=== PATIENT | female | born 1930 ===

== ENCOUNTER 2016-10-22 11:47 | Inpatient (IN) | payer MEDICAID ==
--- NOTE | 2016-10-22 13:21 | ED PDOC ---
Syncope/Near Syncope/Dizzyness Time Seen by Provider: 10/22/16 12:00 Chief Complaint (Nursing): Syncope Chief Complaint (Provider): Syncope History Per: Patient History/Exam Limitations: no limitations Current Symptoms Are (Timing): Still Present Number Of Syncopal Episodes: 1 Seizure Or Post-ictal Symptoms: None Fall Associated With With Symptoms: No Severity: Mild Additional Complaint(s): Patient is a 85 year old female brought to ED by EMS for a witness pre-syncopal episode. Patient reports waking at 0900 today with generalized weakness and shivering but denies any other symptoms. Patient denies chest pain, palpations, SOB or neck pain. Patient does note a recent change in her blood pressure medication. PMD: DR. Rodgers Past Medical History Reviewed: Historical Data, Nursing Documentation, Vital Signs Vital Signs: Last Vital Signs Temp 98.6 F 10/22/16 11:50 Pulse 108 H 10/22/16 13:09 Resp 20 10/22/16 13:09 BP 130/70 10/22/16 13:09 Pulse Ox 99 10/22/16 13:09 - Medical History PMH: Cardia Arrhythmia, HTN, Hypercholesterolemia - Surgical History Surgical History: No Surg Hx - Family History Family History: States: No Known Family Hx - Living Arrangements Living Arrangements: With Family - Home Medications Home Medications: Ambulatory Orders Medication Instructions Recorded Alendronate [Fosamax] 70 mg PO QWK 10/22/16 Atorvastatin [Lipitor] 10 mg PO DAILY 10/22/16 Diclofenac Sodium [Voltaren] 1 appl TOP QID PRN 10/22/16 Levothyroxine [Synthroid] 88 mcg PO DAILY 10/22/16 Losartan/Hydrochlorothiazide 1 tab PO DAILY 10/22/16 [Hyzaar 100-25 Tablet] Meloxicam [Mobic] 15 mg PO DAILY 10/22/16 amLODIPine [Norvasc] 10 mg PO DAILY 10/22/16 - Allergies Allergies/Adverse Reactions: Allergies Allergy/AdvReac Type Severity Reaction Status Date / Time Penicillins Allergy RASH Verified 10/22/16 12:27 Review of Systems ROS Statement: Except As Marked, All Systems Reviewed And Found Negative Constitutional: Positive for: Chills. Negative for: Fever Gastrointestinal: Negative for: Nausea, Vomiting Musculoskeletal: Negative for: Neck Pain Neurological: Positive for: Headache, Other ((+) syncope). Negative for: Weakness, Numbness, Altered Mental Status Physical Exam - Reviewed Nursing Documentation Reviewed: Yes Vital Signs Reviewed: Yes - Physical Exam Appears: Positive for: Non-toxic, Uncomfortable Head Exam: Positive for: ATRAUMATIC, NORMAL INSPECTION Skin: Positive for: Normal Color, Warm. Negative for: Diaphoresis, Pallor Eye Exam: Positive for: Normal appearance, EOMI, PERRL Neck: Positive for: Normal, Painless ROM Cardiovascular/Chest: Positive for: Regular Rate, Rhythm. Negative for: Murmur Respiratory: Positive for: Normal Breath Sounds. Negative for: Respiratory Distress Back: Positive for: Normal Inspection Extremity: Positive for: Normal ROM. Negative for: Pedal Edema, Calf Tenderness Neurologic/Psych: Positive for: Alert, Oriented - Laboratory Results Result Diagrams: 10/23/16 10:10 10/23/16 05:45 - ECG O2 Sat by Pulse Oximetry: 99 (RA) Pulse Ox Interpretation: Normal - CT Scan/US CT head without contrast Other Rad Studies (CT/US): Read By Radiologist, Radiology Report Reviewed Medical Decision Making Medical Decision Making: Time: 1240 Initial impression: Syncope Initial plan: -- CT-head -- CMP -- Troponin -- CBC Time: 14:[address] without contrast results reviewed FINDINGS: HEMORRHAGE: No intracranial hemorrhage. BRAIN: There is no mass, mass effect or abnormal extra-axial fluid collection. There are mild chronic microangiopathic changes. VENTRICLES: There is mild age-related global parenchymal volume loss and proportionate enlargement of the ventricles and cortical sulci. CALVARIUM: The skull base and calvarium are normal. PARANASAL SINUSES: Predominantly clear. MASTOID AIR CELLS: Predominantly clear. OTHER FINDINGS: None. IMPRESSION: No acute intracranial abnormality. Mild chronic microangiopathic changes and mild age-related global parenchymal volume loss. Time: 1645 Case discussed with , covering Dr. Rodgers, will accept patient to telemetry for further evaluation. Patient has no prior EKG to compare changes too. Dx: EKG changes flipped T waves v4-v6 and Pre-Syncope therefore will admit for cardiac monitoring cxr no infiltrate Discussed plans with daughter at bedside and is aware that patient will be admitted pt is agreeable Scribe Attestation: Documented by Ayana Javed acting as a scribe for Joshua Almaraz MD MD Scribe Attestation: All medical record entries made by the Stevenibharriett were at my direction and personally dictated by me. I have reviewed the chart and agree that the record accurately reflects my personal performance of the history, physical exam, medical decision making, and the department course for this patient. I have also personally directed, reviewed, and agree with the discharge instructions and disposition. Disposition - Clinical Impression Clinical Impression: Pre-syncope, Acute electrocardiography changes - Patient ED Disposition Is Patient to be Admitted: Yes Counseled Patient/Family Regarding: Studies Performed, Diagnosis - Disposition Disposition Time: 14:00 Condition: STABLE
[2016-10-22 13:47] LABS: CHLORIDE 104 mmol/L (98-107)
[2016-10-22 13:48] LABS: SODIUM 141 mmol/l (132-148)
[2016-10-22 13:50] LABS: ALKALINE PHOSPHATASE 118 U/L (38-126); AST/SGOT 41 U/L (14-36); BILIRUBIN,TOTAL 1.1 mg/dl (0.2-1.3); CARBON DIOXIDE 20 mmol/L (22-30); GFR AFRICAN-AMERICAN > 60
[2016-10-22 13:51] LABS: ALT/SGPT 24 U/L (9-52); BLOOD UREA NITROGEN 19 mg/dl (7-17); CALCIUM 8.1 mg/dL (8.4-10.2); GLUCOSE,RANDOM 88 mg/dL (65-105)
[2016-10-22 13:57] LABS: ALB/GLOB RATIO 1.2 (1.0-2.1)
[2016-10-22 13:58] LABS: BASO % 0.1 % (0.0-2.0); EOS % 0.4 % (0.0-4.0); HEMATOCRIT 48.8 % (34.0-47.0); LYMPH # 0.5 K/uL (1.0-4.3); LYMPH % 11.3 % (20.0-40.0); MEAN CELL VOLUME 93.4 fl (81.0-99.0); MEAN CORPUSCULAR HGB CONC 33.2 g/dL (33.0-37.0); MEAN PLATELET VOLUME 8.2 fl (7.2-11.7); MONO % 0.4 % (0.0-10.0); NEUT # 3.5 K/uL (1.8-7.0); NEUT % 87.8 % (50.0-75.0); NRBC % 1.4 % (0.0-0.0); POTASSIUM 3.4 MMOL/L (3.6-5.0); RED CELL DISTRIBUTION WIDTH 14.7 % (11.5-14.5)
[2016-10-22] MEDS ORDERED: Potassium Chloride 20 mEq ER Tab PO ONE ×2 (13:58→14:03)
[2016-10-22] MEDS ORDERED: Sodium Chloride 0.9% 1,000 ML IV STA (14:45)
--- NOTE | 2016-10-22 14:45 | CT ---
PROCEDURE: CT HEAD WITHOUT CONTRAST. HISTORY: Headache COMPARISON: None available. TECHNIQUE: Axial computed tomography images were obtained through the head/brain without intravenous contrast. Radiation dose: Total exam DLP = 869.12 MGy-cm. This CT exam was performed using one or more of the following dose reduction techniques: Automated exposure control, adjustment of the mA and/or kV according to patient size, and/or use of iterative reconstruction technique. FINDINGS: HEMORRHAGE: No intracranial hemorrhage. BRAIN: There is no mass, mass effect or abnormal extra-axial fluid collection. There are mild chronic microangiopathic changes. VENTRICLES: There is mild age-related global parenchymal volume loss and proportionate enlargement of the ventricles and cortical sulci. CALVARIUM: The skull base and calvarium are normal. PARANASAL SINUSES: Predominantly clear. MASTOID AIR CELLS: Predominantly clear. OTHER FINDINGS: None. IMPRESSION: No acute intracranial abnormality. Mild chronic microangiopathic changes and mild age-related global parenchymal volume loss.
--- NOTE | 2016-10-22 17:14 | ED PDOC ---
- Laboratory Results Result Diagrams: 10/27/16 06:10 10/27/16 06:10 - ECG O2 Sat by Pulse Oximetry: 99 (RA) Medical Decision Making Medical Decision Makin:00 Patient will be signed out to me by Joshua Almaraz MD pending XRay, reevaluation , and final disposition. Scribe Attestation: Documented by Kizzy Owen acting as a scribe for Marilyn Negron MD, MD Scribe Attestation: All medical record entries made by the Scribe were at my direction and personally dictated by me. I have reviewed the chart and agree that the record accurately reflects my personal performance of the history, physical exam, medical decision making, and the department course for this patient. I have also personally directed, reviewed, and agree with the discharge instructions and disposition. Disposition Doctor Will See Patient In The: Hospital - Clinical Impression Clinical Impression: Pre-syncope, Acute electrocardiogram changes - POA Present On Arrival: None - Disposition Disposition: Admitted as In-Patient Disposition Time: 20:00 Condition: STABLE
--- NOTE | 2016-10-22 19:11 | CP.PCM.CON ---
History of Present Illness - History of Present Illness History of Present Illness: I was asked to see patietn by Dr. Noyola. Patient is a 85 year old female with a history of HTN, hyperchoelsterolemia who presents with presyncopal episode. The patient reports a sensation of dizziness and lightheadedness. The patient denies chest pain. Review of Systems - Constitutional Constitutional: absent: As Per HPI, Anorexia, Chills, Daytime Sleepiness, Excessive Sweating, Fatigue, Fever, Frequent Falls, Headache, Increased Appetite , Lethargy, Malaise, Night Sweats, Snoring, Sleep Apnea, Weight Gain, Weight Loss, Weakness, Other - EENT Eyes: absent: As Per HPI, Blind Spots, Blurred Vision, Change in Vision, Decreased Night Vision, Diplopia, Discharge, Dry Eye, Exophthalmos, Floaters, Irritation, Itchy Eyes, Loss of Peripheral Vision, Pain, Photophobia, Requires Corrective Lenses, Sees Flashes, Spots in Vision, Tunnel Vision, Other Visual Disturbances, Loss of Vision, Other Ears: absent: As Per HPI, Decreased Hearing, Ear Discharge, Ear Pain, Tinnitus, Abnormal Hearing, Disequilibrium, Dizziness, Other Nose/Mouth/Throat: absent: As Per HPI, Epistaxis, Nasal Congestion, Nasal Discharge, Nasal Obstruction, Nasal Trauma, Nose Pain, Post Nasal Drip, Sinus Pain, Sinus Pressure, Bleeding Gums, Change in Voice, Dental Pain, Dry Mouth, Dysphagia, Halitosis, Hoarsness, Lip Swelling, Mouth Lesions, Mouth Pain, Odynophagia, Sore Throat, Throat Swelling, Tongue Swelling, Facial Pain, Neck Pain, Neck Mass, Other - Cardiovascular Cardiovascular: Syncope - Respiratory Respiratory: absent: As Per HPI, Cough, Dyspnea, Hemoptysis, Dyspnea on Exertion , Wheezing, Snoring, Stridor, Pain on Inspiration, Chest Congestion, Excessive Mucous Production, Change in Mucous Color, Pain with Coughing, Other - Gastrointestinal Gastrointestinal: absent: As Per HPI, Abdominal Pain, Belching, Bloating, Change in Bowel Habits, Change in Stool Character, Coffee Ground Emesis, Constipation, Cramping, Diarrhea, Dyspepsia, Dysphagia, Early Satiety, Excessive Flatus, Fecal Incontinence, Heartburn, Hematemesis, Hematochezia, Loose Stools, Melena, Nausea, Odynophagia, Temesmus, Vomiting, Other - Musculoskeletal Musculoskeletal: absent: As Per HPI, Abnormal Gait, Arthralgias, Atrophy, Back Pain, Deformity, Joint Swelling, Limited Range of Motion, Loss of Height, Muscle Cramps, Muscle Weakness, Myalgias, Neck Pain, Numbness, Radiating Pain into Limb, Stiffness, Tingling, Other - Integumentary Integumentary: absent: As Per HPI, Acne, Alopecia, Bleeding Lesions, Change in Hair, Change in Nails, Change in Pigmentation, Changing Lesions, Dry Skin, Erythema, Furuncle, Hirsutism, Lesions, New Lesions, Non-Healing Lesions, Photosensitivity, Pruritus, Rash, Skin Pain, Skin Ulcer, Sores, Striae, Swelling , Unusual Bruising, Wounds, Jaundice, Other - Neurological Neurological: absent: As Per HPI, Abnormal Gait, Abnormal Hearing, Abnormal Movements, Abnormal Speech, Behavioral Changes, Burning Sensations, Confusion, Convulsions, Disequilibrium, Dizziness, Numbness, Focal Weakness, Frequent Falls , Headaches, Lack of Coordination, Loss of Vision, Memory Loss, Paresthesias, Radicular Pain, Restless Legs, Sensory Deficit, Syncope, Tingling, Tremor, Vertigo, Weakness, Other Visual Disturbances, Other - Psychiatric Psychiatric: absent: As Per HPI, Abnormal Sleep Pattern, Anhedonia, Anxiety, Auditory Hallucinations, Behavioral Changes, Change in Appetite, Change in Libido, Confusion, Depression, Difficulty Concentrating, Hallucinations, Homicidal Ideation, Hopelessness, Irritability, Memory Loss, Mood Swings, Panic Attacks, Paranoia, Suicidal Ideation, Visual Hallucinations, Tactile Hallucinations, Other - Endocrine Endocrine: absent: As Per HPI, Change in Body Appearance, Change in Libido, Cold Intolorance, Deepening of Voice, Excessive Sweating, Fatigue, Flushing, Heat Intolorance, Increase in Ring/Shoe/Hat Size, Palpitations, Polydipsia, Polyphagia, Polyuria, Other - Hematologic/Lymphatic Hematologic: absent: As Per HPI, Easy Bleeding, Easy Bruising, Lymphadenopathy, Other Past Patient History - Past Social History Smoking Status: Never Smoked - CARDIAC Hx Cardia Arrhythmia: Yes Hx Hypercholesterolemia: Yes Hx Hypertension: Yes - PSYCHIATRIC Hx Substance Use: No - SURGICAL HISTORY Hx Thyroidectomy: Yes - ANESTHESIA Hx Anesthesia: Yes Hx Anesthesia Reactions: No Meds Allergies/Adverse Reactions: Allergies Allergy/AdvReac Type Severity Reaction Status Date / Time Penicillins Allergy RASH Verified 10/22/16 12:27 - Medications Medications: Current Medications Sodium Chloride (Sodium Chloride 0.9%) 1,000 mls @ 150 mls/hr IV .[id number] STA Stop: 10/22/16 21:24 Last Admin: 10/22/16 17:01 Dose: 150 mls/hr Physical Exam - Constitutional Appears: Non-toxic - Head Exam Head Exam: NORMAL INSPECTION - Eye Exam Eye Exam: Normal appearance - ENT Exam ENT Exam: Mucous Membranes Moist - Neck Exam Neck exam: Positive for: Full Rom - Respiratory Exam Respiratory Exam: Decreased Breath Sounds - Cardiovascular Exam Cardiovascular Exam: REGULAR RHYTHM - GI/Abdominal Exam GI & Abdominal Exam: Normal Bowel Sounds - Rectal Exam Rectal Exam: Deferred - Extremities Exam Extremities exam: Negative for: pedal edema - Back Exam Back exam: NORMAL INSPECTION - Neurological Exam Neurological exam: Alert, Oriented x3 - Psychiatric Exam Psychiatric exam: Normal Affect - Skin Skin Exam: Normal Color Results - Vital Signs Recent Vital Signs: Last Vital Signs Temp 98.6 F 10/22/16 18:39 Pulse 102 H 10/22/16 16:27 Resp 20 10/22/16 18:39 BP 110/63 10/22/16 18:39 Pulse Ox 98 10/22/16 18:39 - Labs Result Diagrams: 10/23/16 10:10 10/23/16 05:45 - EKG Data EKG Interpreted by: Myself EKG shows normal: Sinus rhythm Assessment & Plan (1) Syncope Assessment and Plan: unclear etiology. recommend telemetry monitoring. will check echocardiogram, serial enzymes. Status: Acute (2) HTN (hypertension) Assessment and Plan: blood pressure control Status: Acute
[2016-10-23] MEDS ORDERED: ALENDRONATE 70 MG TAB PO SCH (00:45)
--- NOTE | 2016-10-23 00:46 | CARD ---
APPROVED REPORT EKG Measurement Heart [id number] <Conclusion> Sinus tachycardia Possible Left atrial enlargement Possible Inferior infarct, age undetermined Abnormal ECG
[2016-10-23] MEDS: Sodium Chloride 0.45% 1,000 ML IV SCH ×3 (00:58→21:41)
[2016-10-23 06:43] LABS: BASO # 0.1 K/uL (0.0-0.2); BASO % 0.3 % (0.0-2.0); EOS % 0.1 % (0.0-4.0); HEMATOCRIT 38.7 % (34.0-47.0); LYMPH # 0.6 K/uL (1.0-4.3); LYMPH % 2.4 % (20.0-40.0); MEAN CELL VOLUME 92.7 fl (81.0-99.0); MEAN CORPUSCULAR HEMOGLOBIN 30.9 pg (27.0-31.0); MEAN CORPUSCULAR HGB CONC 33.4 g/dL (33.0-37.0); MONO # 0.8 K/uL (0.0-0.8); MONO % 3.6 % (0.0-10.0); NEUT # 21.5 K/uL (1.8-7.0); NEUT % 93.6 % (50.0-75.0); NRBC % 0.1 % (0.0-0.0); PLATELET COUNT 191 K/uL (130-400); RED CELL DISTRIBUTION WIDTH 14.6 % (11.5-14.5)
[2016-10-23] MEDS: Levothyroxine 88 MCG TAB PO SCH (06:43)
[2016-10-23 07:29] LABS: CALCIUM 7.3 mg/dL (8.4-10.2); POTASSIUM 4.5 MMOL/L (3.6-5.0)
[2016-10-23 08:04] LABS: THYROID STIMULATING HORMONE 1.47 mIU/ML (0.46-4.68)
[2016-10-23] MEDS: Enoxaparin 40 mg Syringe SC SCH (08:33)
[2016-10-23 09:34] LABS: METAMYELOCYTE 1 % (0-0); MYELOCYTE 2 % (0-0); NEUTROPHIL 70 % (42-75); TOTAL CELLS COUNTED 100
--- NOTE | 2016-10-23 10:07 | RAD ---
HISTORY: gen weakness COMPARISON: No prior. TECHNIQUE: Chest PA and lateral FINDINGS: LUNGS: No active pulmonary disease. PLEURA: No significant pleural effusion identified. No pneumothorax apparent. CARDIOVASCULAR: Normal. OSSEOUS STRUCTURES: No significant abnormalities. VISUALIZED UPPER ABDOMEN: Normal. OTHER FINDINGS: None. IMPRESSION: No active disease.
[2016-10-23 10:14] LABS: LARGE PLATELETS PRESENT; PLATELET CLUMPS PRESENT
[2016-10-23 10:25] LABS: HEMATOCRIT 38.4 % (34.0-47.0); MEAN CELL VOLUME 92.1 fl (81.0-99.0); MEAN CORPUSCULAR HEMOGLOBIN 30.7 pg (27.0-31.0); MEAN CORPUSCULAR HGB CONC 33.3 g/dL (33.0-37.0); RED CELL DISTRIBUTION WIDTH 14.4 % (11.5-14.5); WHITE BLOOD COUNT 22.1 K/uL (4.8-10.8)
--- NOTE | 2016-10-23 12:40 | CARD ---
APPROVED REPORT EXAM: Two-dimensional and M-mode echocardiogram with Doppler and color Doppler. Other Information Quality : FairRhythm : NSR Technically limited study due to Poor Echo Window INDICATION Syncope Mitral Valve E/A ratio0.0 TDI E/Lateral E'0.0E/Medial E'0.0 LEFT VENTRICLE The left ventricle is normal size. There is normal left ventricular wall thickness. The left ventricular function is normal. The left ventricular ejection fraction is - 70%. There is normal LV segmental wall motion. Transmitral Doppler flow pattern is Grade I-abnormal relaxation pattern. No left ventricle thrombus noted on this study. There is no ventricular septal defect visualized. There is no left ventricular aneurysm. There is no mass noted in the left ventricle. RIGHT VENTRICLE The right ventricle is normal size. There is normal right ventricular wall thickness. The right ventricular systolic function is normal. ATRIA The left atrium size is normal. The right atrium size is normal. The interatrial septum is intact with no evidence for an atrial septal defect. AORTIC VALVE Not seen well There is trace aortic regurgitation. There is no aortic valvular stenosis. MITRAL VALVE The mitral valve is normal in structure and function. There is no evidence of mitral valve prolapse. There is no mitral valve stenosis. There is no mitral valve regurgitation noted. TRICUSPID VALVE not seen well There is no tricuspid valve regurgitation noted. There is no tricuspid valve stenosis. PULMONIC VALVE The pulmonic valve is not well visualized. There is no pulmonic valvular regurgitation. GREAT VESSELS The aortic root is normal in size. The IVC was not visualized. PERICARDIAL EFFUSION small anterior echo free space There is no pleural effusion. <Conclusion> The study is of suboptimal quality. The left ventricle is normal in size and wall thickness. The left ventricular function is normal. The left ventricular ejection fraction is - 70%. The left atrium, right ventricle and right atrium are normal in size. The mitral valve is normal. The aortic and tricuspid valves are not seen well but do not appear stenotic. There is trace aortic regurgitation.
[2016-10-23] MEDS: Aztreonam 1 GM in Sodium Chloride 0.9% 100 ML IVPB SCH ×2 (13:50→21:39)
--- NOTE | 2016-10-23 17:47 | CP.PCM.CON ---
History of Present Illness - History of Present Illness History of Present Illness: discussed on rounds IV antibiotics ordered admitted for syncope developed fever sepsis to be ruled out Review of Systems - Constitutional Constitutional: As Per HPI - EENT Eyes: absent: As Per HPI, Blind Spots, Blurred Vision, Change in Vision, Decreased Night Vision, Diplopia, Discharge, Dry Eye, Exophthalmos, Floaters, Irritation, Itchy Eyes, Loss of Peripheral Vision, Pain, Photophobia, Requires Corrective Lenses, Sees Flashes, Spots in Vision, Tunnel Vision, Other Visual Disturbances, Loss of Vision, Other Ears: absent: As Per HPI, Decreased Hearing, Ear Discharge, Ear Pain, Tinnitus, Abnormal Hearing, Disequilibrium, Dizziness, Other Nose/Mouth/Throat: absent: As Per HPI, Epistaxis, Nasal Congestion, Nasal Discharge, Nasal Obstruction, Nasal Trauma, Nose Pain, Post Nasal Drip, Sinus Pain, Sinus Pressure, Bleeding Gums, Change in Voice, Dental Pain, Dry Mouth, Dysphagia, Halitosis, Hoarsness, Lip Swelling, Mouth Lesions, Mouth Pain, Odynophagia, Sore Throat, Throat Swelling, Tongue Swelling, Facial Pain, Neck Pain, Neck Mass, Other - Breasts Breasts: absent: As Per HPI, Change in Shape, Mass, Pain, Nipple Discharge, Nipple Inversion, Skin Changes, Swelling, Other - Cardiovascular Cardiovascular: As Per HPI - Respiratory Respiratory: As Per HPI - Gastrointestinal Gastrointestinal: As Per HPI - Genitourinary Genitourinary: As Per HPI - Reproductive: Female Reproductive:Female: absent: As Per HPI, Amenorrhea, Amenorrhea/ Control, Currently Menstual, Cycle <21 Days, Cycle >35 Days, Cycle Variable, Menses 1-7 Days, Menses >/= 8 Days, Menses Variable, Cycle > 4 Weeks Between, No Menses for 6 Months, Heavy Menses, Light Menses, Normal Menses, Spotting Between Cycles , S/P Hysterectomy, Menopausal, Post Menopausal, Premenarche, Abnormal Vaginal Bleeding, Dysmenorrhea, Dyspareunia, Genital Lesions, Genital Pruritis, Pelvic Pain, Prolapse Symptoms, Sexual Dysfunction, Vaginal Discharge, Vaginal Dryness , Vaginal Odor, Vaginal Pruritis, Other - Menstruation Menstruation: absent: As Per HPI, Amenorrhea, Amenorrhea/ Control, Currently Menstual, Cycle <21 Days, Cycle >35 Days, Cycle Variable, Menses 1-7 Days, Menses >/= 8 Days, Menses Variable, Cycle > 4 Weeks Between, No Menses for 6 Months, Heavy Menses, Light Menses, Normal Menses, Spotting Between Cycles , S/P Hysterectomy, Menopausal, Post Menopausal, Premenarche, Abnormal Vaginal Bleeding, Dysmenorrhea, Other - Musculoskeletal Musculoskeletal: As Per HPI - Integumentary Integumentary: absent: As Per HPI, Acne, Alopecia, Bleeding Lesions, Change in Hair, Change in Nails, Change in Pigmentation, Changing Lesions, Dry Skin, Erythema, Furuncle, Hirsutism, Lesions, New Lesions, Non-Healing Lesions, Photosensitivity, Pruritus, Rash, Skin Pain, Skin Ulcer, Sores, Striae, Swelling , Unusual Bruising, Wounds, Jaundice, Other - Neurological Neurological: absent: As Per HPI, Abnormal Gait, Abnormal Hearing, Abnormal Movements, Abnormal Speech, Behavioral Changes, Burning Sensations, Confusion, Convulsions, Disequilibrium, Dizziness, Numbness, Focal Weakness, Frequent Falls , Headaches, Lack of Coordination, Loss of Vision, Memory Loss, Paresthesias, Radicular Pain, Restless Legs, Sensory Deficit, Syncope, Tingling, Tremor, Vertigo, Weakness, Other Visual Disturbances, Other - Psychiatric Psychiatric: absent: As Per HPI, Abnormal Sleep Pattern, Anhedonia, Anxiety, Auditory Hallucinations, Behavioral Changes, Change in Appetite, Change in Libido, Confusion, Depression, Difficulty Concentrating, Hallucinations, Homicidal Ideation, Hopelessness, Irritability, Memory Loss, Mood Swings, Panic Attacks, Paranoia, Suicidal Ideation, Visual Hallucinations, Tactile Hallucinations, Other - Endocrine Endocrine: absent: As Per HPI, Change in Body Appearance, Change in Libido, Cold Intolorance, Deepening of Voice, Excessive Sweating, Fatigue, Flushing, Heat Intolorance, Increase in Ring/Shoe/Hat Size, Palpitations, Polydipsia, Polyphagia, Polyuria, Other - Hematologic/Lymphatic Hematologic: absent: As Per HPI, Easy Bleeding, Easy Bruising, Lymphadenopathy, Other Past Patient History - Past Medical History & Family History Past Medical History?: Yes - Past Social History Smoking Status: Never Smoked - CARDIAC Hx Cardiac Disorders: Yes Hx Cardia Arrhythmia: Yes Hx Hypercholesterolemia: Yes Hx Hypertension: Yes - PULMONARY Hx Respiratory Disorders: No - NEUROLOGICAL Hx Neurological Disorder: No - HEENT Hx HEENT Problems: No - RENAL Hx Chronic Kidney Disease: No - ENDOCRINE/METABOLIC Hx Endocrine Disorders: No - HEMATOLOGICAL/ONCOLOGICAL Hx Blood Disorders: No Hx AIDS: No Hx Human Immunodeficiency Virus (HIV): No - INTEGUMENTARY Hx Dermatological Problems: No - MUSCULOSKELETAL/RHEUMATOLOGICAL Hx Musculoskeletal Disorders: No Hx Falls: No - GASTROINTESTINAL Hx Gastrointestinal Disorders: No - GENITOURINARY/GYNECOLOGICAL Hx Genitourinary Disorders: No - PSYCHIATRIC Hx Psychophysiologic Disorder: No Hx Substance Use: No - SURGICAL HISTORY Hx Surgeries: Yes Hx Thyroidectomy: Yes - ANESTHESIA Hx Anesthesia: Yes Hx Anesthesia Reactions: No Meds Allergies/Adverse Reactions: Allergies Allergy/AdvReac Type Severity Reaction Status Date / Time Penicillins Allergy RASH Verified 10/22/16 12:27 - Medications Medications: Current Medications Acetaminophen (Tylenol 325mg Tab) 650 mg PO Q6 PRN PRN Reason: Fever >100.4 F Last Admin: 10/23/16 00:47 Dose: 650 mg Alendronate Sodium (Fosamax) 70 mg PO QWK [facility] Last Admin: 10/23/16 08:31 Dose: 70 mg Amlodipine Besylate (Norvasc) 10 mg PO DAILY [facility] Last Admin: 10/23/16 08:31 Dose: Not Given Aspirin (Aspirin) 325 mg PO DAILY [facility] Last Admin: 10/23/16 08:30 Dose: 325 mg Atorvastatin Calcium (Lipitor) 10 mg PO DAILY [facility] Last Admin: 10/23/16 08:31 Dose: 10 mg Enoxaparin Sodium (Lovenox) 40 mg SC DAILY [facility] PRN Reason: Protocol Last Admin: 10/23/16 08:33 Dose: 40 mg Sodium Chloride (Sodium Chloride 0.45%) 1,000 mls @ 100 mls/hr IV .Q10H [facility] Stop: 10/24/16 00:46 Last Admin: 10/23/16 11:15 Dose: 100 mls/hr Aztreonam 1 gm/ Sodium (Chloride) 100 mls @ 100 mls/hr IVPB Q12 [facility] Last Admin: 10/23/16 13:50 Dose: 100 mls/hr Vancomycin HCl 1 gm/ Sodium (Chloride) 250 mls @ 166.667 mls/hr IVPB 1500 [facility] Last Admin: 10/23/16 13:57 Dose: 166.667 mls/hr Levothyroxine Sodium (Synthroid) 88 mcg PO DAILY@0630 [facility] Last Admin: 10/23/16 06:43 Dose: 88 mcg Physical Exam - Constitutional Appears: Non-toxic, Chronically Ill - Head Exam Head Exam: NORMOCEPHALIC - Eye Exam Eye Exam: PERRL. absent: Scleral icterus - ENT Exam ENT Exam: Mucous Membranes Dry, Normal External Ear Exam, Normal Oropharynx - Neck Exam Neck exam: Negative for: Lymphadenopathy, Thyromegaly - Respiratory Exam Respiratory Exam: Decreased Breath Sounds, Rhonchi - Cardiovascular Exam Cardiovascular Exam: REGULAR RHYTHM, +S1, +S2 - GI/Abdominal Exam GI & Abdominal Exam: Diminished Bowel Sounds, Soft. absent: Tenderness - Rectal Exam Rectal Exam: Deferred - Exam Exam: NORMAL INSPECTION - Extremities Exam Extremities exam: Negative for: calf tenderness, pedal edema - Back Exam Back exam: absent: CVA tenderness (L), CVA tenderness (R), paraspinal tenderness - Neurological Exam Neurological exam: Alert, CN II-XII Intact, Oriented x3, Reflexes Normal - Psychiatric Exam Psychiatric exam: Normal Mood - Skin Skin Exam: Dry, Intact Results - Vital Signs Recent Vital Signs: Last Vital Signs Temp 98.8 F 10/23/16 16:06 Pulse 86 10/23/16 16:06 Resp 20 10/23/16 16:06 BP 98/56 L 10/23/16 16:06 Pulse Ox 95 10/23/16 16:06 - Labs Result Diagrams: 10/24/16 06:40 10/24/16 06:40 Labs: Laboratory Results - last 24 hr 10/23/16 10/23/16 10/23/16 05:45 10:10 16:45 WBC 23.0 H D 22.1 H RBC 4.18 4.17 Hgb 12.9 D 12.8 Hct 38.7 38.4 MCV 92.7 92.1 MCH 30.9 30.7 MCHC 33.4 33.3 RDW 14.6 H 14.4 Plt Count 191 172 MPV 8.0 Neut % (Auto) 93.6 H Lymph % (Auto) 2.4 L Gre[place] % (Auto) 3.6 Eos % (Auto) 0.1 Baso % (Auto) 0.3 Neut # 21.5 H Lymph # 0.6 L Gre[place] # 0.8 Eos # 0.0 Baso # 0.1 Neutrophils % (Manual) 70 Band Neutrophils % 25 H* Lymphocytes % (Manual) 1 L Monocytes % (Manual) 1 Metamyelocytes % 1 H Myelocytes % 2 H Platelet Estimate Normal Plt Clumps, EDTA Present Large Platelets Present Anisocytosis (manual) Slight Sodium 141 Potassium 4.5 Chloride 107 Carbon Dioxide 22 Anion Gap 16 BUN 33 H Creatinine 1.6 H Est GFR ( Amer) 37 Est GFR (Non-Af Amer) 31 Random Glucose 101 Calcium 7.3 L Troponin I 0.0720 0.0410 TSH 3rd Generation 1.47 Assessment & Plan (1) Acute electrocardiogram changes Status: Acute (2) Fever Status: Acute (3) HTN (hypertension) Status: Acute (4) Pre-syncope Status: Acute (5) Syncope Status: Acute - Assessment and Plan (Free Text) Assessment: septic work up and IV antibiotics
--- NOTE | 2016-10-23 18:20 | CP.PCM.PN ---
Subjective - Date & Time of Evaluation Date of Evaluation: 10/23/16 Time of Evaluation: 18:00 - Subjective Subjective: patient has no new complaints. Objective - Vital Signs/Intake and Output Vital Signs (last 24 hours): Temp Pulse Resp BP Pulse Ox 98.8 F 86 20 98/56 L 95 10/23/16 16:06 10/23/16 16:06 10/23/16 16:06 10/23/16 16:06 10/23/16 16:06 Intake and Output: 10/23/16 10/23/16 06:59 18:59 Intake Total 450 1870 Output Total 1200 Balance 450 670 - Medications Medications: Current Medications Acetaminophen (Tylenol 325mg Tab) 650 mg PO Q6 PRN PRN Reason: Fever >100.4 F Last Admin: 10/23/16 00:47 Dose: 650 mg Alendronate Sodium (Fosamax) 70 mg PO QWK [facility] Last Admin: 10/23/16 08:31 Dose: 70 mg Amlodipine Besylate (Norvasc) 10 mg PO DAILY [facility] Last Admin: 10/23/16 08:31 Dose: Not Given Aspirin (Aspirin) 325 mg PO DAILY [facility] Last Admin: 10/23/16 08:30 Dose: 325 mg Atorvastatin Calcium (Lipitor) 10 mg PO DAILY [facility] Last Admin: 10/23/16 08:31 Dose: 10 mg Enoxaparin Sodium (Lovenox) 40 mg SC DAILY [facility] PRN Reason: Protocol Last Admin: 10/23/16 08:33 Dose: 40 mg Sodium Chloride (Sodium Chloride 0.45%) 1,000 mls @ 100 mls/hr IV .Q10H [facility] Stop: 10/24/16 00:46 Last Admin: 10/23/16 11:15 Dose: 100 mls/hr Aztreonam 1 gm/ Sodium (Chloride) 100 mls @ 100 mls/hr IVPB Q12 [facility] Last Admin: 10/23/16 13:50 Dose: 100 mls/hr Vancomycin HCl 1 gm/ Sodium (Chloride) 250 mls @ 166.667 mls/hr IVPB 1500 [facility] Last Admin: 10/23/16 13:57 Dose: 166.667 mls/hr Levothyroxine Sodium (Synthroid) 88 mcg PO DAILY@0630 [facility] Last Admin: 10/23/16 06:43 Dose: 88 mcg - Labs Labs: 04/06/17 10:10 10/23/16 05:45 - Constitutional Appears: Non-toxic - Head Exam Head Exam: NORMAL INSPECTION - Eye Exam Eye Exam: Normal appearance - ENT Exam ENT Exam: Mucous Membranes Moist - Neck Exam Neck Exam: Full ROM - Respiratory Exam Respiratory Exam: NORMAL BREATHING PATTERN - Cardiovascular Exam Cardiovascular Exam: REGULAR RHYTHM - GI/Abdominal Exam GI & Abdominal Exam: Normal Bowel Sounds - Rectal Exam Rectal Exam: Deferred - Extremities Exam Extremities Exam: absent: Pedal Edema - Back Exam Back Exam: NORMAL INSPECTION - Neurological Exam Neurological Exam: Alert - Psychiatric Exam Psychiatric exam: Normal Affect - Skin Skin Exam: Normal Color Assessment and Plan (1) Syncope Assessment & Plan: echocardiogram reviewed. normal left ventricular function. medical therapy Status: Acute (2) HTN (hypertension) Assessment & Plan: blood pressure control Status: Acute
[2016-10-23 21:28] LABS: RBC URINE 2 /hpf (0-3); URINE BACTERIA FEW (<OCC); URINE BILIRUBIN NEGATIVE (NEGATIVE); URINE BLOOD NEGATIVE (NEGATIVE); URINE COLOR AMBER (YELLOW); URINE GLUCOSE (UA) NEG (Normal); URINE KETONE NEGATIVE (NEGATIVE); URINE LEUKOCYTE ESTERASE NEG Leu/uL (Negative); URINE PROTEIN 100 mg/dL (NEGATIVE); URINE UROBILINOGEN 0.2-1.0 mg/dL (0.2-1.0); WBC URINE 10 /hpf (0-5)
--- NOTE | 2016-10-23 22:26 | CP.PCM.HP ---
Past Patient History - Past Medical History & Family History Past Medical History?: Yes - Past Social History Smoking Status: Never Smoked - CARDIAC Hx Cardia Arrhythmia: Yes Hx Hypercholesterolemia: Yes Hx Hypertension: Yes - PULMONARY Hx Respiratory Disorders: No - NEUROLOGICAL Hx Neurological Disorder: No - HEENT Hx HEENT Problems: No - RENAL Hx Chronic Kidney Disease: No - ENDOCRINE/METABOLIC Hx Endocrine Disorders: No - HEMATOLOGICAL/ONCOLOGICAL Hx Blood Disorders: No Hx AIDS: No Hx Human Immunodeficiency Virus (HIV): No - INTEGUMENTARY Hx Dermatological Problems: No - MUSCULOSKELETAL/RHEUMATOLOGICAL Hx Musculoskeletal Disorders: No Hx Falls: No - GASTROINTESTINAL Hx Gastrointestinal Disorders: No - GENITOURINARY/GYNECOLOGICAL Hx Genitourinary Disorders: No - PSYCHIATRIC Hx Substance Use: No - SURGICAL HISTORY Hx Thyroidectomy: Yes - ANESTHESIA Hx Anesthesia: Yes Hx Anesthesia Reactions: No Meds Allergies/Adverse Reactions: Allergies Allergy/AdvReac Type Severity Reaction Status Date / Time Penicillins Allergy RASH Verified 10/22/16 12:27 Results - Vital Signs Recent Vital Signs: Last Vital Signs Temp 99.3 F 10/23/16 19:21 Pulse 83 10/23/16 19:21 Resp 20 10/23/16 19:21 BP 130/67 10/23/16 19:21 Pulse Ox 92 L 10/23/16 19:21 - Labs Result Diagrams: 10/23/16 10:10 10/23/16 05:45 Labs: Laboratory Results - last 24 hr 10/23/16 10/23/16 10/23/16 05:45 10:10 16:45 WBC 23.0 H D 22.1 H RBC 4.18 4.17 Hgb 12.9 D 12.8 Hct 38.7 38.4 MCV 92.7 92.1 MCH 30.9 30.7 MCHC 33.4 33.3 RDW 14.6 H 14.4 Plt Count 191 172 MPV 8.0 Neut % (Auto) 93.6 H Lymph % (Auto) 2.4 L Blaine % (Auto) 3.6 Eos % (Auto) 0.1 Baso % (Auto) 0.3 Neut # 21.5 H Lymph # 0.6 L Blaine # 0.8 Eos # 0.0 Baso # 0.1 Neutrophils % (Manual) 70 Band Neutrophils % 25 H* Lymphocytes % (Manual) 1 L Monocytes % (Manual) 1 Metamyelocytes % 1 H Myelocytes % 2 H Platelet Estimate Normal Plt Clumps, EDTA Present Large Platelets Present Anisocytosis (manual) Slight Sodium 141 Potassium 4.5 Chloride 107 Carbon Dioxide 22 Anion Gap 16 BUN 33 H Creatinine 1.6 H Est GFR ( Amer) 37 Est GFR (Non-Af Amer) 31 Random Glucose 101 Calcium 7.3 L Troponin I 0.0720 0.0410 TSH 3rd Generation 1.47 Urine Color Urine Clarity Urine pH Ur Specific [place] Urine Protein Urine Glucose (UA) Urine Ketones Urine Blood Urine Nitrate Urine Bilirubin Urine Urobilinogen Ur Leukocyte Esterase Urine RBC (Auto) Urine Microscopic WBC Ur Squamous Epith Cells Urine Bacteria Hyaline Casts 10/23/16 20:00 WBC RBC Hgb Hct MCV MCH MCHC RDW Plt Count MPV Neut % (Auto) Lymph % (Auto) Blaine % (Auto) Eos % (Auto) Baso % (Auto) Neut # Lymph # [place] # Eos # Baso # Neutrophils % (Manual) Band Neutrophils % Lymphocytes % (Manual) Monocytes % (Manual) Metamyelocytes % Myelocytes % Platelet Estimate Plt Clumps, EDTA Large Platelets Anisocytosis (manual) Sodium Potassium Chloride Carbon Dioxide Anion Gap BUN Creatinine Est GFR ( Amer) Est GFR (Non-Af Amer) Random Glucose Calcium Troponin I TSH 3rd Generation Urine Color [place] Urine Clarity Slighty-cloudy Urine pH 5.0 Ur Specific [place] 1.020 Urine Protein 100 Urine Glucose (UA) Neg Urine Ketones Negative Urine Blood Negative Urine Nitrate Negative Urine Bilirubin Negative Urine Urobilinogen 0.2-1.0 Ur Leukocyte Esterase Neg Urine RBC (Auto) 2 Urine Microscopic WBC 10 H Ur Squamous Epith Cells 9 H Urine Bacteria Few H Hyaline Casts 11-20 H
[2016-10-24] MEDS: Levothyroxine 88 MCG TAB PO SCH (05:34)
[2016-10-24 07:18] LABS: HEMATOCRIT 37.5 % (34.0-47.0); MEAN CELL VOLUME 92.8 fl (81.0-99.0); MEAN CORPUSCULAR HEMOGLOBIN 30.3 pg (27.0-31.0); MEAN CORPUSCULAR HGB CONC 32.6 g/dL (33.0-37.0); RED CELL DISTRIBUTION WIDTH 14.5 % (11.5-14.5); WHITE BLOOD COUNT 18.4 K/uL (4.8-10.8)
[2016-10-24 07:29] LABS: POTASSIUM 3.9 MMOL/L (3.6-5.0)
[2016-10-24] MEDS: Enoxaparin 40 mg Syringe SC SCH (08:15)
[2016-10-24] MEDS: Aztreonam 1 GM in Sodium Chloride 0.9% 100 ML IVPB SCH ×2 (08:21→15:56)
--- NOTE | 2016-10-24 13:56 | CP.PCM.PN ---
Subjective - Date & Time of Evaluation Date of Evaluation: 10/24/16 Time of Evaluation: 07:00 - Subjective Subjective: admitted for syncope developed fevers min congestion denies complaints alert/awake Objective - Vital Signs/Intake and Output Vital Signs (last 24 hours): Temp Pulse Resp BP Pulse Ox 98.1 F 75 20 131/62 94 L 10/24/16 13:00 10/24/16 13:00 10/24/16 13:00 10/24/16 13:00 10/24/16 13:00 Intake and Output: 10/24/16 10/24/16 06:59 18:59 Intake Total 1120 Output Total 650 Balance 470 - Medications Medications: Current Medications Acetaminophen (Tylenol 325mg Tab) 650 mg PO Q6 PRN PRN Reason: Fever >100.4 F Last Admin: 10/23/16 00:47 Dose: 650 mg Acetaminophen (Tylenol 325mg Tab) 650 mg PO Q6 PRN PRN Reason: Fever >100.4 F Alendronate Sodium (Fosamax) 70 mg PO QWK [facility] Last Admin: 10/23/16 08:31 Dose: 70 mg Amlodipine Besylate (Norvasc) 10 mg PO DAILY [facility] Last Admin: 10/24/16 08:16 Dose: 10 mg Aspirin (Aspirin) 325 mg PO DAILY [facility] Last Admin: 10/24/16 08:21 Dose: 325 mg Atorvastatin Calcium (Lipitor) 10 mg PO DAILY [facility] Last Admin: 10/24/16 08:19 Dose: 10 mg Enoxaparin Sodium (Lovenox) 40 mg SC DAILY [facility] PRN Reason: Protocol Last Admin: 10/24/16 08:15 Dose: 40 mg Aztreonam 1 gm/ Sodium (Chloride) 100 mls @ 100 mls/hr IVPB Q12 [facility] Last Admin: 10/24/16 08:21 Dose: 100 mls/hr Vancomycin HCl 1 gm/ Sodium (Chloride) 250 mls @ 166.667 mls/hr IVPB 1500 [facility] Last Admin: 10/23/16 13:57 Dose: 166.667 mls/hr Levothyroxine Sodium (Synthroid) 88 mcg PO DAILY@0630 [facility] Last Admin: 10/24/16 05:34 Dose: 88 mcg - Labs Labs: 10/24/16 06:40 10/24/16 06:40 - Constitutional Appears: Non-toxic, Chronically Ill - Head Exam Head Exam: NORMOCEPHALIC - Eye Exam Eye Exam: absent: Scleral icterus - ENT Exam ENT Exam: Mucous Membranes Dry - Neck Exam Neck Exam: absent: Lymphadenopathy - Respiratory Exam Respiratory Exam: Decreased Breath Sounds, Rhonchi - Cardiovascular Exam Cardiovascular Exam: REGULAR RHYTHM, +S1, +S2 - GI/Abdominal Exam GI & Abdominal Exam: Distended, Soft. absent: Tenderness - Rectal Exam Rectal Exam: Deferred - Exam Exam: NORMAL INSPECTION - Extremities Exam Extremities Exam: absent: Pedal Edema - Back Exam Back Exam: absent: CVA tenderness (L), CVA tenderness (R) - Neurological Exam Neurological Exam: Alert, Awake, Oriented x3 Neuro motor strength exam: Left Upper Extremity: 4, Right Upper Extremity: 4, Left Lower Extremity: 4, Right Lower Extremity: 4 - Psychiatric Exam Psychiatric exam: Depressed - Skin Skin Exam: Dry Assessment and Plan (1) Acute electrocardiogram changes Status: Acute (2) HTN (hypertension) Status: Acute (3) Pre-syncope Status: Acute (4) Syncope Status: Acute (5) Fever Status: Acute - Assessment and Plan (Free Text) Assessment: await cultures cont iv antibiotics
--- NOTE | 2016-10-24 19:25 | CP.PCM.PN ---
Subjective - Date & Time of Evaluation Date of Evaluation: 10/24/16 Time of Evaluation: 19:05 Objective - Vital Signs/Intake and Output Vital Signs (last 24 hours): Temp Pulse Resp BP Pulse Ox 98.2 F 65 18 145/65 96 10/24/16 16:00 10/24/16 16:00 10/24/16 16:00 10/24/16 16:00 10/24/16 16:00 - Medications Medications: Current Medications Acetaminophen (Tylenol 325mg Tab) 650 mg PO Q6 PRN PRN Reason: Fever >100.4 F Last Admin: 10/23/16 00:47 Dose: 650 mg Acetaminophen (Tylenol 325mg Tab) 650 mg PO Q6 PRN PRN Reason: Fever >100.4 F Alendronate Sodium (Fosamax) 70 mg PO QWK [facility] Last Admin: 10/23/16 08:31 Dose: 70 mg Amlodipine Besylate (Norvasc) 10 mg PO DAILY [facility] Last Admin: 10/24/16 08:16 Dose: 10 mg Aspirin (Aspirin) 325 mg PO DAILY [facility] Last Admin: 10/24/16 08:21 Dose: 325 mg Atorvastatin Calcium (Lipitor) 10 mg PO DAILY [facility] Last Admin: 10/24/16 08:19 Dose: 10 mg Enoxaparin Sodium (Lovenox) 40 mg SC DAILY [facility] PRN Reason: Protocol Last Admin: 10/24/16 08:15 Dose: 40 mg Vancomycin HCl 1 gm/ Sodium (Chloride) 250 mls @ 166.667 mls/hr IVPB 1500 [facility] Last Admin: 10/24/16 15:43 Dose: 166.667 mls/hr Aztreonam 1 gm/ Sodium (Chloride) 100 mls @ 100 mls/hr IVPB Q8 [facility] Last Admin: 10/24/16 15:56 Dose: 100 mls/hr Levothyroxine Sodium (Synthroid) 88 mcg PO DAILY@0630 [facility] Last Admin: 10/24/16 05:34 Dose: 88 mcg - Labs Labs: 10/24/16 06:40 10/24/16 06:40
[2016-10-25] MEDS: Aztreonam 1 GM in Sodium Chloride 0.9% 100 ML IVPB SCH ×3 (00:16→16:33)
--- NOTE | 2016-10-25 00:20 | CT ---
EXAM: CT Head Without Intravenous Contrast CLINICAL HISTORY: 85 years old, female; Condition or disease; Other: Ekg changes / pre syncope; Additional info: As per md order TECHNIQUE: Axial computed tomography images of the head/brain without intravenous contrast. This CT exam was performed using one or more of the following dose reduction techniques: automated exposure control, adjustment of the mA and/or kV according to patient size, and/or use of iterative reconstruction technique. Coronal and sagittal reformatted images were created and reviewed. COMPARISON: No relevant prior studies available. FINDINGS: Brain: No acute intracranial hemorrhage. Age-appropriate periventricular white matter disease. No edema. Ventricles: Age-appropriate ventriculomegaly. Bones: No acute displaced fracture. Sinuses: Unremarkable as visualized. No acute sinusitis. Mastoid air cells: Unremarkable as visualized. No mastoid effusion. IMPRESSION: No acute intracranial hemorrhage, or suspicious mass effect.
[2016-10-25] MEDS ORDERED: Sodium Chloride 0.9% 500 ML IV SCH ×2 (01:00→01:02)
[2016-10-25] MEDS: Levothyroxine 88 MCG TAB PO SCH (05:49)
[2016-10-25] MEDS: Enoxaparin 40 mg Syringe SC SCH (08:28)
--- NOTE | 2016-10-25 22:26 | CP.PCM.PN ---
Subjective - Date & Time of Evaluation Date of Evaluation: 10/25/16 Time of Evaluation: 17:50 Objective - Vital Signs/Intake and Output Vital Signs (last 24 hours): Temp Pulse Resp BP Pulse Ox 98.3 F 85 20 160/73 H 96 10/25/16 20:37 10/25/16 20:37 10/25/16 20:37 10/25/16 20:37 10/25/16 20:37 - Medications Medications: Current Medications Acetaminophen (Tylenol 325mg Tab) 650 mg PO Q6 PRN PRN Reason: Pain, Mild (1-3) Last Admin: 10/24/16 21:42 Dose: 650 mg Alendronate Sodium (Fosamax) 70 mg PO QWK [facility] Last Admin: 10/23/16 08:31 Dose: 70 mg Amlodipine Besylate (Norvasc) 10 mg PO DAILY [facility] Last Admin: 10/25/16 08:28 Dose: 10 mg Aspirin (Aspirin) 325 mg PO DAILY [facility] Last Admin: 10/25/16 08:30 Dose: 325 mg Atorvastatin Calcium (Lipitor) 10 mg PO DAILY [facility] Last Admin: 10/25/16 08:28 Dose: 10 mg Enoxaparin Sodium (Lovenox) 40 mg SC DAILY [facility] PRN Reason: Protocol Last Admin: 10/25/16 08:28 Dose: 40 mg Vancomycin HCl 1 gm/ Sodium (Chloride) 250 mls @ 166.667 mls/hr IVPB 1500 [facility] Last Admin: 10/25/16 15:00 Dose: 166.667 mls/hr Aztreonam 1 gm/ Sodium (Chloride) 100 mls @ 100 mls/hr IVPB Q8 [facility] Last Admin: 10/25/16 16:33 Dose: 100 mls/hr Levothyroxine Sodium (Synthroid) 88 mcg PO DAILY@0630 [facility] Last Admin: 10/25/16 05:49 Dose: 88 mcg - Labs Labs: 10/24/16 06:40 10/24/16 06:40
[2016-10-26] MEDS: Aztreonam 1 GM in Sodium Chloride 0.9% 100 ML IVPB SCH ×3 (00:32→16:10)
[2016-10-26] MEDS: Levothyroxine 88 MCG TAB PO SCH (06:27)
[2016-10-26] MEDS: Enoxaparin 40 mg Syringe SC SCH (08:22)
--- NOTE | 2016-10-26 14:15 | CP.PCM.PN ---
Subjective - Date & Time of Evaluation Date of Evaluation: 10/26/16 Time of Evaluation: 09:00 - Subjective Subjective: wbc trending down denies fever, chest pain or diarrhea no fever Objective - Vital Signs/Intake and Output Vital Signs (last 24 hours): Temp Pulse Resp BP Pulse Ox 98 F 58 L 18 148/66 96 10/26/16 12:09 10/26/16 12:09 10/26/16 12:09 10/26/16 12:09 10/26/16 12:09 Intake and Output: 10/26/16 10/26/16 06:59 18:59 Intake Total 580 Output Total 2 Balance 578 - Medications Medications: Current Medications Acetaminophen (Tylenol 325mg Tab) 650 mg PO Q6 PRN PRN Reason: Pain, Mild (1-3) Last Admin: 10/26/16 00:24 Dose: 650 mg Alendronate Sodium (Fosamax) 70 mg PO QWK [facility] Last Admin: 10/23/16 08:31 Dose: 70 mg Amlodipine Besylate (Norvasc) 10 mg PO DAILY [facility] Last Admin: 10/26/16 09:07 Dose: 10 mg Aspirin (Aspirin) 325 mg PO DAILY [facility] Last Admin: 10/26/16 08:24 Dose: 325 mg Atorvastatin Calcium (Lipitor) 10 mg PO DAILY [facility] Last Admin: 10/26/16 08:20 Dose: 10 mg Vancomycin HCl 1 gm/ Sodium (Chloride) 250 mls @ 166.667 mls/hr IVPB 1500 [facility] Last Admin: 10/25/16 15:00 Dose: 166.667 mls/hr Aztreonam 1 gm/ Sodium (Chloride) 100 mls @ 100 mls/hr IVPB Q8 [facility] Last Admin: 10/26/16 08:25 Dose: 100 mls/hr Levothyroxine Sodium (Synthroid) 88 mcg PO DAILY@0630 [facility] Last Admin: 10/26/16 06:27 Dose: 88 mcg - Labs Labs: 10/24/16 06:40 10/24/16 06:40 - Constitutional Appears: Non-toxic, Chronically Ill - Head Exam Head Exam: NORMOCEPHALIC - Eye Exam Eye Exam: PERRL. absent: Scleral icterus - ENT Exam ENT Exam: Mucous Membranes Dry - Neck Exam Neck Exam: absent: Lymphadenopathy - Respiratory Exam Respiratory Exam: Decreased Breath Sounds, Rhonchi - Cardiovascular Exam Cardiovascular Exam: REGULAR RHYTHM, +S1, +S2 - GI/Abdominal Exam GI & Abdominal Exam: Distended, Soft. absent: Tenderness - Rectal Exam Rectal Exam: Deferred - Exam Exam: NORMAL INSPECTION - Extremities Exam Extremities Exam: absent: Calf Tenderness, Pedal Edema - Back Exam Back Exam: absent: CVA tenderness (L), CVA tenderness (R) - Neurological Exam Neurological Exam: Alert, Awake, Oriented x3 - Psychiatric Exam Psychiatric exam: Normal Mood - Skin Skin Exam: Dry, Intact Assessment and Plan (1) Acute electrocardiogram changes Status: Acute (2) Fever Status: Acute (3) HTN (hypertension) Status: Acute (4) Pre-syncope Status: Acute (5) Syncope Status: Acute - Assessment and Plan (Free Text) Assessment: cont iv antibiotics will check procalcitonin level consider echo/ nicolas if no source found
--- NOTE | 2016-10-26 22:37 | CP.PCM.PN ---
Subjective - Date & Time of Evaluation Date of Evaluation: 10/26/16 Time of Evaluation: 22:45 Objective - Vital Signs/Intake and Output Vital Signs (last 24 hours): Temp Pulse Resp BP Pulse Ox 98.2 F 61 18 126/57 L 96 10/26/16 15:46 10/26/16 15:46 10/26/16 15:46 10/26/16 15:46 10/26/16 15:46 Intake and Output: 10/26/16 10/27/16 18:59 06:59 Intake Total 1060 Output Total 900 Balance 160 - Medications Medications: Current Medications Acetaminophen (Tylenol 325mg Tab) 650 mg PO Q6 PRN PRN Reason: Pain, Mild (1-3) Last Admin: 10/26/16 00:24 Dose: 650 mg Alendronate Sodium (Fosamax) 70 mg PO QWK [facility] Last Admin: 10/23/16 08:31 Dose: 70 mg Amlodipine Besylate (Norvasc) 10 mg PO DAILY [facility] Last Admin: 10/26/16 09:07 Dose: 10 mg Aspirin (Aspirin) 325 mg PO DAILY [facility] Last Admin: 10/26/16 08:24 Dose: 325 mg Atorvastatin Calcium (Lipitor) 10 mg PO DAILY [facility] Last Admin: 10/26/16 08:20 Dose: 10 mg Vancomycin HCl 1 gm/ Sodium (Chloride) 250 mls @ 166.667 mls/hr IVPB 1500 [facility] Last Admin: 10/26/16 15:10 Dose: 166.667 mls/hr Aztreonam 1 gm/ Sodium (Chloride) 100 mls @ 100 mls/hr IVPB Q8 [facility] Last Admin: 10/26/16 16:10 Dose: 100 mls/hr Levothyroxine Sodium (Synthroid) 88 mcg PO DAILY@0630 [facility] Last Admin: 10/26/16 06:27 Dose: 88 mcg - Labs Labs: 10/24/16 06:40 10/24/16 06:40
[2016-10-27] MEDS: Aztreonam 1 GM in Sodium Chloride 0.9% 100 ML IVPB SCH ×3 (00:52→16:42)
[2016-10-27] MEDS: Levothyroxine 88 MCG TAB PO SCH (06:39)
[2016-10-27 06:43] LABS: BASO # 0.1 K/uL (0.0-0.2); BASO % 1.1 % (0.0-2.0); EOS # 0.5 K/uL (0.0-0.7); EOS % 5.4 % (0.0-4.0); HEMATOCRIT 38.8 % (34.0-47.0); LYMPH % 23.1 % (20.0-40.0); MEAN CELL VOLUME 91.7 fl (81.0-99.0); MEAN CORPUSCULAR HEMOGLOBIN 30.6 pg (27.0-31.0); MEAN CORPUSCULAR HGB CONC 33.4 g/dL (33.0-37.0); MEAN PLATELET VOLUME 7.5 fl (7.2-11.7); MONO % 11.2 % (0.0-10.0); NEUT # 5.1 K/uL (1.8-7.0); NEUT % 59.2 % (50.0-75.0); NRBC % 0.3 % (0.0-0.0); WHITE BLOOD COUNT 8.6 K/uL (4.8-10.8)
[2016-10-27 07:00] LABS: ALB/GLOB RATIO 1.1 (1.0-2.1); ALKALINE PHOSPHATASE 66 U/L (38-126); ALT/SGPT 51 U/L (9-52); AST/SGOT 65 U/L (14-36); BILIRUBIN,TOTAL 0.8 mg/dl (0.2-1.3); BLOOD UREA NITROGEN 18 mg/dl (7-17); CALCIUM 7.9 mg/dL (8.4-10.2); CARBON DIOXIDE 29 mmol/L (22-30); CHLORIDE 107 mmol/L (98-107); GFR AFRICAN-AMERICAN > 60; GLUCOSE,RANDOM 84 mg/dL (65-105); POTASSIUM 3.7 MMOL/L (3.6-5.0); SODIUM 145 mmol/l (132-148); TOTAL PROTEIN 5.8 G/DL (6.3-8.2)
--- NOTE | 2016-10-27 11:07 | CP.PCM.PN ---
Subjective - Date & Time of Evaluation Date of Evaluation: 10/27/16 Time of Evaluation: 08:00 - Subjective Subjective: LEUKOCYTOSIS RESOLVING ALL CULTURES NEG VANCO LEVEL OK TOO COMPLETE 7 DAYS RX CONSIDER CARDIO EVAL/ ECHO Objective - Vital Signs/Intake and Output Vital Signs (last 24 hours): Temp Pulse Resp BP Pulse Ox 98.1 F 70 18 141/56 L 99 10/27/16 08:08 10/27/16 09:17 10/27/16 08:08 10/27/16 09:17 10/27/16 08:08 Intake and Output: 10/27/16 10/27/16 06:59 18:59 Intake Total 1060 Output Total 900 Balance 160 - Medications Medications: Current Medications Acetaminophen (Tylenol 325mg Tab) 650 mg PO Q6 PRN PRN Reason: Pain, Mild (1-3) Last Admin: 10/26/16 00:24 Dose: 650 mg Alendronate Sodium (Fosamax) 70 mg PO QWK [facility] Last Admin: 10/23/16 08:31 Dose: 70 mg Amlodipine Besylate (Norvasc) 10 mg PO DAILY [facility] Last Admin: 10/27/16 09:17 Dose: 10 mg Aspirin (Aspirin) 325 mg PO DAILY [facility] Last Admin: 10/27/16 09:17 Dose: 325 mg Atorvastatin Calcium (Lipitor) 10 mg PO DAILY [facility] Last Admin: 10/27/16 09:17 Dose: 10 mg Vancomycin HCl 1 gm/ Sodium (Chloride) 250 mls @ 166.667 mls/hr IVPB 1500 [facility] Last Admin: 10/26/16 15:10 Dose: 166.667 mls/hr Aztreonam 1 gm/ Sodium (Chloride) 100 mls @ 100 mls/hr IVPB Q8 [facility] Last Admin: 10/27/16 09:19 Dose: 100 mls/hr Levothyroxine Sodium (Synthroid) 88 mcg PO DAILY@0630 [facility] Last Admin: 10/27/16 06:39 Dose: 88 mcg - Labs Labs: 10/27/16 06:10 10/27/16 06:10 Assessment and Plan (1) Acute electrocardiogram changes Status: Acute (2) Fever Status: Acute (3) HTN (hypertension) Status: Acute (4) Pre-syncope Status: Acute (5) Syncope Status: Acute
[2016-10-27] MEDS: Enoxaparin 40 mg Syringe SC SCH (21:00)
--- NOTE | 2016-10-27 23:10 | CP.PCM.PN ---
Subjective - Date & Time of Evaluation Date of Evaluation: 10/27/16 Time of Evaluation: 17:50 Objective - Vital Signs/Intake and Output Vital Signs (last 24 hours): Temp Pulse Resp BP Pulse Ox 98.5 F 63 20 147/65 97 10/27/16 19:59 10/27/16 20:04 10/27/16 19:59 10/27/16 19:59 10/27/16 19:59 Intake and Output: 10/27/16 10/28/16 18:59 06:59 Intake Total 1090 Output Total 4 Balance 1086 - Medications Medications: Current Medications Acetaminophen (Tylenol 325mg Tab) 650 mg PO Q6 PRN PRN Reason: Pain, Mild (1-3) Last Admin: 10/26/16 00:24 Dose: 650 mg Alendronate Sodium (Fosamax) 70 mg PO QWK [facility] Last Admin: 10/23/16 08:31 Dose: 70 mg Amlodipine Besylate (Norvasc) 10 mg PO DAILY [facility] Last Admin: 10/27/16 09:17 Dose: 10 mg Aspirin (Aspirin) 325 mg PO DAILY [facility] Last Admin: 10/27/16 09:17 Dose: 325 mg Atorvastatin Calcium (Lipitor) 10 mg PO DAILY [facility] Last Admin: 10/27/16 09:17 Dose: 10 mg Docusate Sodium (Colace) 100 mg PO TID [facility] Last Admin: 10/27/16 18:54 Dose: 100 mg Enoxaparin Sodium (Lovenox) 40 mg SC DAILY [facility] PRN Reason: Protocol Vancomycin HCl 1 gm/ Sodium (Chloride) 250 mls @ 166.667 mls/hr IVPB 1500 [facility] Last Admin: 10/27/16 16:01 Dose: 166.667 mls/hr Aztreonam 1 gm/ Sodium (Chloride) 100 mls @ 100 mls/hr IVPB Q8 [facility] Last Admin: 10/27/16 16:42 Dose: 100 mls/hr Levothyroxine Sodium (Synthroid) 88 mcg PO DAILY@0630 [facility] Last Admin: 10/27/16 06:39 Dose: 88 mcg - Labs Labs: 10/27/16 06:10 10/27/16 06:10
[2016-10-28] MEDS: Aztreonam 1 GM in Sodium Chloride 0.9% 100 ML IVPB SCH ×2 (01:00→09:40)
[2016-10-28] MEDS: Levothyroxine 88 MCG TAB PO SCH (06:24)
[2016-10-28] MEDS: Enoxaparin 40 mg Syringe SC SCH (09:40)
[2016-10-28 12:32] VITALS: BP 126/65; PULSE 72; RESP 18; TEMP 98.1
--- NOTE | 2016-10-28 14:11 | CP.PCM.DIS ---
Provider - Provider Date of Admission: 10/22/16 16:46 Attending physician: Dhara Noyola MD Time Spent in preparation of Discharge (in minutes): 25 Hospital Course - Lab Results Lab Results: Micro Results 10/23/16 10:10 Blood-Venous Blood Culture - Final NO GROWTH AFTER 5 DAYS 10/23/16 10:10 Blood-Venous Gram Stain - Final TEST NOT PERFORMED 10/23/16 10:00 Blood-Venous Blood Culture - Final NO GROWTH AFTER 5 DAYS 10/23/16 10:00 Blood-Venous Gram Stain - Final TEST NOT PERFORMED 10/23/16 20:00 Urine,Clean Catch Urine Culture - Final <10,000 CFU/ML. MULTIPLE SPECIES. PROBABLE CONTAMINATION. Most Recent Lab Values WBC 8.6 K/uL (4.8-10.8) D 10/27/16 06:10 RBC 4.22 Mil/uL (3.80-5.20) 10/27/16 06:10 Hgb 12.9 g/dL (12.0-16.0) 10/27/16 06:10 Hct 38.8 % (34.0-47.0) 10/27/16 06:10 MCV 91.7 fl (81.0-99.0) 10/27/16 06:10 MCH 30.6 pg (27.0-31.0) 10/27/16 06:10 MCHC 33.4 g/dL (33.0-37.0) 10/27/16 06:10 RDW 14.0 % (11.5-14.5) 10/27/16 06:10 Plt Count 202 K/uL (130-400) 10/27/16 06:10 MPV 7.5 fl (7.2-11.7) 10/27/16 06:10 Neut % (Auto) 59.2 % (50.0-75.0) 10/27/16 06:10 Lymph % (Auto) 23.1 % (20.0-40.0) 10/27/16 06:10 Morris % (Auto) 11.2 % (0.0-10.0) H 10/27/16 06:10 Eos % (Auto) 5.4 % (0.0-4.0) H 10/27/16 06:10 Baso % (Auto) 1.1 % (0.0-2.0) 10/27/16 06:10 Neut # 5.1 K/uL (1.8-7.0) 10/27/16 06:10 Lymph # 2.0 K/uL (1.0-4.3) 10/27/16 06:10 Morris # 1.0 K/uL (0.0-0.8) H 10/27/16 06:10 Eos # 0.5 K/uL (0.0-0.7) 10/27/16 06:10 Baso # 0.1 K/uL (0.0-0.2) 10/27/16 06:10 Neutrophils % (Manual) 70 % (42-75) 10/23/16 05:45 Band Neutrophils % 25 % (0-2) H* 10/23/16 05:45 Lymphocytes % (Manual) 1 % (20-50) L 10/23/16 05:45 Monocytes % (Manual) 1 % (0-10) 10/23/16 05:45 Metamyelocytes % 1 % (0-0) H 10/23/16 05:45 Myelocytes % 2 % (0-0) H 10/23/16 05:45 Platelet Estimate Normal (NORMAL) 10/23/16 05:45 Plt Clumps, EDTA Present 10/23/16 05:45 Large Platelets Present 10/23/16 05:45 Anisocytosis (manual) Slight 10/23/16 05:45 Sodium 145 mmol/l (132-148) 10/27/16 06:10 Potassium 3.7 MMOL/L (3.6-5.0) 10/27/16 06:10 Chloride 107 mmol/L (98-107) 10/27/16 06:10 Carbon Dioxide 29 mmol/L (22-30) 10/27/16 06:10 Anion Gap 13 (10-20) 10/27/16 06:10 BUN 18 mg/dl (7-17) H 10/27/16 06:10 Creatinine 0.8 mg/dL (0.7-1.2) 10/27/16 06:10 Est GFR ( Amer) > 60 10/27/16 06:10 Est GFR (Non-Af Amer) > 60 10/27/16 06:10 Random Glucose 84 mg/dL (65-105) 10/27/16 06:10 Calcium 7.9 mg/dL (8.4-10.2) L 10/27/16 06:10 Total Bilirubin 0.8 mg/dl (0.2-1.3) 10/27/16 06:10 AST 65 U/L (14-36) H D 10/27/16 06:10 ALT 51 U/L (9-52) 10/27/16 06:10 Alkaline Phosphatase 66 U/L (38-126) 10/27/16 06:10 Troponin I 0.0410 ng/mL (0.00-0.120) 10/23/16 16:45 Total Protein 5.8 G/DL (6.3-8.2) L 10/27/16 06:10 Albumin 3.0 g/dL (3.5-5.0) L D 10/27/16 06:10 Globulin 2.8 gm/dL (2.2-3.9) 10/27/16 06:10 Albumin/Globulin Ratio 1.1 (1.0-2.1) 10/27/16 06:10 Procalcitonin 17.07 NG/ML (0.19-0.49) H 10/27/16 06:10 TSH 3rd Generation 1.47 mIU/ML (0.46-4.68) 10/23/16 05:45 Urine Color Shirlene (YELLOW) 10/23/16 20:00 Urine Clarity Slighty-cloudy (Clear) 10/23/16 20:00 Urine pH 5.0 (5.0-8.0) 10/23/16 20:00 Ur Specific Pelham 1.020 (1.003-1.030) 10/23/16 20:00 Urine Protein 100 mg/dL (NEGATIVE) 10/23/16 20:00 Urine Glucose (UA) Neg mg/dL (Normal) 10/23/16 20:00 Urine Ketones Negative mg/dL (NEGATIVE) 10/23/16 20:00 Urine Blood Negative (NEGATIVE) 10/23/16 20:00 Urine Nitrate Negative (NEGATIVE) 10/23/16 20:00 Urine Bilirubin Negative (NEGATIVE) 10/23/16 20:00 Urine Urobilinogen 0.2-1.0 mg/dL (0.2-1.0) 10/23/16 20:00 Ur Leukocyte Esterase Neg Charley/uL (Negative) 10/23/16 20:00 Urine RBC (Auto) 2 /hpf (0-3) 10/23/16 20:00 Urine Microscopic WBC 10 /hpf (0-5) H 10/23/16 20:00 Ur Squamous Epith Cells 9 /hpf (0-5) H 10/23/16 20:00 Urine Bacteria Few (<OCC) H 10/23/16 20:00 Hyaline Casts 11-20 /hpf (0-2) H 10/23/16 20:00 Vancomycin Trough 10.6 ug/mL (5.0-10.0) H 10/27/16 06:10 Discharge Exam - Head Exam Head Exam: NORMOCEPHALIC Discharge Plan - Follow Up Plan Condition: STABLE Disposition: HOME/ ROUTINE Instructions: Syncope (DC) Additional Instructions: Activity as tolerated. no strenous activity. Heart healthy, low fat, low cholesterol diet.Follow -up w/ Primary Doctor Dr Rosario to call for appt.
[2016-11-05 12:44] VITALS: O2SAT 99
== END 2016-10-28 14:51 | disposition home health service (06) | DRG 142 ==
LOC: H.ER 11:47 → H.ERHOLD 16:46 → H.TEL 21:38
PROVIDERS: ADMIT Internal Medicine; ATTEND Internal Medicine
DX: R55 Syncope and collapse (principal); R50.9 Fever, unspecified; I10 Essential (primary) hypertension; E78.00 Pure hypercholesterolemia, unspecified; D72.829 Elevated white blood cell count, unspecified; R94.31 Abnormal electrocardiogram [ECG] [EKG]; Z88.0 Allergy status to penicillin; Z79.1 Long term (current) use of non-steroidal anti-inflammatories (NSAID)